=== PATIENT | female | born 1970 | race Caucasian/White ===

== ENCOUNTER 2016-11-13 20:46 | Emergency (ER) | payer SELFPAY ==
[~2016-11-13] VITALS: Ht 167.6 cm; Wt 72.7 kg
[2016-11-13 20:56] VITALS: Ht 167.6 cm; Wt 72.7 kg
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
--- NOTE | 2016-11-14 00:57 | RADRPT ---
PROCEDURE: Noncontrast CT Head. CLINICAL INDICATION: Pain. TECHNIQUE: Noncontrast CT of the head was obtained. The administered radiation dose was CTDI vol = 45 mGy, DLP = 720 mGy-cm. COMPARISON: No pertinent prior examinations were submitted for comparison. FINDINGS: The ventricles and sulci are within normal limits. There is no acute intracranial hemorrhage or ext ra-axial fluid collection. There is no mass effect. No midline shift is identified. There is no loss of franco-white differentiation to suggest acute infarction. The orbits are within normal limits. The paranasal sinuses and mastoid air cells are without fluid. No destructive osseous lesion is identified. IMPRESSION: No acute findings. RPTAT: HIKT .Andrew Grimes MD, MD Date Time Electronically viewed and signed by .Andrew Grimes MD, on 11/14/2016 00:57 .T/
--- NOTE | 2016-11-14 00:58 | RADRPT ---
PROCEDURE: CT Cervical Spine without contrast. CLINICAL INDICATION: Trauma TECHNIQUE: Noncontrast CT of the cervical spine was performed with axial images. Coronal and sagitta l images were also performed. The administered radiation dose was CTDI vol = 22 mGy, DLP = 536 mGy- cm. COMPARISON: There are no similar studies submitted for comparison. FINDINGS: There is mild reversal of the normal cervical lordosis. Vertebral body stature and alignment are ma intained. No acute fracture or subluxation is identified. The paravertebral and paraspinous soft ti ssues are unremarkable. IMPRESSION: No acute fracture or subluxation. RPTAT: HIKT .Andrew Grimes MD, MD Date Time Electronically viewed and signed by .Andrew Grimes MD, on 11/14/2016 00:58 .T/
[2016-11-14] MEDS ORDERED: CYCL-319 PO (01:04)
[2016-11-14] MEDS ORDERED: HYDR-906 PO (01:04)
[2016-11-14] MEDS ORDERED: IBUP-1542 PO (01:04)
[2016-11-14 01:26] VITALS: BP 122/78; PULSE 72; RESP 18; TEMP 98.2
== END 2016-11-14 01:27 | disposition home or self-care (01) ==
LOC: FTE 20:46
DX: S16.1XXA Strain of muscle, fascia and tendon at neck level, initial encounter (principal); S06.0X0A Concussion without loss of consciousness, initial encounter; V89.2XXA Person injured in unspecified motor-vehicle accident, traffic, initial encounter
CPT/HCPCS: 70450; 72125